=== PATIENT | male | born 1980 | race Caucasian/White ===

== ENCOUNTER → 2025-02-01 13:13 | Outpatient (REF) | payer OTHER, SELFPAY | LOC: MRI 3T 13:13 | PROVIDERS: ATTENDING PHYSICIAN Family Medicine Sports Medicine; FAMILY PHYSICIAN Internal Medicine | DX: S43.431A Superior glenoid labrum lesion of right shoulder, initial encounter (principal) | CPT/HCPCS: 23350; 73040; 73222 ==